=== PATIENT | male | born 1960 | race African-American/Black ===

== ENCOUNTER → 2016-05-22 | Outpatient (CLI) | payer MEDICAID ==
--- NOTE | ~2016-05-22 | MR17 ---
[facility] A Service of [facility] RADIOLOGY TEXT RESULTS PATIENT: CHANTAL HARTLEY LOCATION: [facility] : 56 UNIT #: [id number] AGE: [address]: Jordy Swanson MD SEX: M ORDER DR: [id number] [address] [address] [id number] MR#: [id number] Acc #: [id number] NAME: CHANTAL HARTLEY : 1960 SEX: M STUDY DATE/TIME: 05/22/2016 14:54 UNIT: [facility] ROOM: STUDY DESCRIPTION: MR Brain WWo Contrast Attending Physician: Jordy Swanson M.D. Referring Physician: Makayla Lin Aprn Ordering Physician: Jordy Swanson M.D. Primary Care Physician: Makayla Lin Aprn MRI CENTER REPORT This report is preliminary unless electronic signature is present. EXAM MRI of the brain with and without contrast dated 05/22/2016 COMPARISON None. 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 Visual field defect. FINDINGS Multisequence, multiplanar imaging of the brain was obtained with and without contrast. 20 mL of MultiHance was administered intravenously. Nonenhancing less than 1 cm few hyperintense T2-signal lesions are noted in the subcortical white matter and periventricular white matter. No acute stroke, hydrocephalus, hemorrhage or midline shift. Postcontrast sequences do not demonstrate enhancing lesions. S-shaped nasal septal deviation is seen. Tiny left and small right nonenhancing mucous retention cysts are not noted in the maxillary antra. Thick slices through the sella with the pituitary gland, pineal region and upper cervical spine are unremarkable. There is an 8.5 mm calcified lesion abutting the inner table of the left temporal bone at the level of the circular sulcus, close to the frontal bone. Enhancing soft tissue component is noted with it. No nearby brain parenchymal edema. Calcified meningioma and bony osteoma/ exostosis are in the differential consideration. Meningioma is favored. Benign. IMPRESSION 1. Nonenhancing scattered multiple hyperintense T2-signal lesions are noted in the brain predominantly involving the white matter suggestive of mild chronic microvascular ischemic change or migraine based on age and statistics. 2. There is an 8.5 mm calcified lesion abutting the inner table of the STS. [facility] A Service of [facility] RADIOLOGY TEXT RESULTS PATIENT: CHANTAL HARTLEY LOCATION: [facility] : 56 UNIT #: [id number] AGE: [address]: Jordy Swanson MD SEX: M ORDER DR: left temporal bone at the level of the circular sulcus, close to the frontal bone. Enhancing soft tissue component is noted with it. No nearby brain parenchymal edema. Calcified meningioma and bony osteoma/ exostosis are in the differential consideration. Meningioma is favored. Benign. Dictated by... Courtney Zamarripa M.D. THIS IS AN ELECTRONICALLY VERIFIED REPORT Courtney Zamarripa M.D. at 05/23/2016 3:44 PM CPR/denise TD: 05/23/2016 12:07 JOB #: [id number] MRI CENTER REPORT
== END | disposition home or self-care (01) ==
LOC: SMRI 14:27
DX: H54.7 Unspecified visual loss (principal); G93.89 Other specified disorders of brain
CPT/HCPCS: 70553; A9581